=== PATIENT | female | born 1995 | race Two or more races ===

== ENCOUNTER 2025-02-07 12:27 | Inpatient (IN) | payer OTHER ==
[~2025-02-07] VITALS: Ht 157.5 cm; Wt 99.8 kg
[2025-02-07 16:30] VITALS: BP 98/61; O2SAT 97
[2025-02-07] MEDS ORDERED: CIPROFLOXACIN IN 5 % DEXTROSE 400 MG/200 ML PIGGYBAG IV SCH (18:57)
[2025-02-07] MEDS ORDERED: FAMOTIDINE/PF 20 MG/2 ML VIAL IV SCH (18:57)
[2025-02-07] MEDS ORDERED: METRONIDAZOLE/SODIUM CHLORIDE 500 MG/100 ML PIGGYBACK IV SCH (18:58)
[2025-02-07] MEDS ORDERED: 0.9 % SODIUM CHLORIDE 1,000 ML IV SCH (19:00)
[2025-02-07] MEDS ORDERED: ONDANSETRON HCL 2 MG/ML VIAL IV PRN (19:00)
[2025-02-08] MEDS ORDERED: IOVERSOL 320 MG/ML - 50 ML VIAL IV ONE (12:59)
[2025-02-08] MEDS ORDERED: GLUCAGON 1 MG VIAL ONE (12:59)
[2025-02-08] MEDS ORDERED: DICLOFENAC SODIUM 100 MG SUPP.RECT RECTAL ONE (14:15)
[2025-02-08 18:51] VITALS: BP 94/59; O2SAT 98
[2025-02-09 00:59] VITALS: BP 101/55; O2SAT 100
[2025-02-09] MEDS ORDERED: ENOXAPARIN SODIUM 40 MG/0.4 ML SYRINGE SUBCUTANEO SCH (09:00)
[2025-02-09 16:00] VITALS: BP 95/57; O2SAT 99
[2025-02-10 01:16] VITALS: BP 100/55; O2SAT 98
[2025-02-10 08:02] LABS: BASO % 1.2 % (0.1-1.2); EOS # 0.23 (0.04-0.54); EOS % 5.6 % (0.7-7.0); LYMPH # 1.92 (1.18-3.74); LYMPH % 46.7 % (19.3-53.1); MEAN PLATELET VOLUME 11.20 fl (9.4-12.4); MONO # 0.39 (0.24-0.82); MONO % 9.5 % (4.7-12.5); NEUT # 1.51 (1.56-6.13); NEUT % 36.8 % (34.0-71.1); RED CELL DISTRIBUTION WIDTH 12.5 % (11.6-14.4)
[2025-02-10 08:18] LABS: BUN CREA RATIO 6.0 (7.0-25.0); CREATININE SERUM 0.54 mg/dL (0.55-1.02); GFR 135.42; GLUCOSE FASTING 101.0 mg/dL (65-100); OSMOLALITY SERUM 282.0 MOSM/KG (275-295)
== END 2025-02-10 12:59 | disposition home or self-care (01) | DRG 446 ==
LOC: SURG 12:27 → SURH 16:27
PROVIDERS: ADMIT Student in an Organized Health Care Education/Training Program; ATTEND Student in an Organized Health Care Education/Training Program
PROC: 0FC98ZZ Extirpation of Matter from Common Bile Duct, Via Natural or Artificial Opening Endoscopic (ICD-10-PCS; principal; 2025-02-07)
DX: K80.50 Calculus of bile duct without cholangitis or cholecystitis without obstruction (principal); K80.20 Calculus of gallbladder without cholecystitis without obstruction

== ENCOUNTER 2025-03-11 06:16 | Day surgery (SDC) | payer OTHER ==
[~2025-03-11 06:16] MED LIST: CRYSELLE-28 TA1 EACH
[2025-03-11] MEDS ORDERED: CEFAZOLIN SODIUM 1,000 MG VIAL IV ONE (09:30)
[2025-03-11] MEDS ORDERED: SUGAMMADEX SODIUM 200 MG/2 ML VIAL IV ONE (10:15)
[2025-03-11] MEDS ORDERED: BUPIVACAINE HCL 30 ML VIAL IJ ONE (10:15)
[2025-03-11] MEDS ORDERED: MORPHINE SULFATE 4 MG/ML VIAL IV ONE (10:55)
== END 2025-03-11 12:20 | disposition home or self-care (01) ==
LOC: CIR.AMB 06:16
PROVIDERS: ATTEND Student in an Organized Health Care Education/Training Program
DX: K80.10 Calculus of gallbladder with chronic cholecystitis without obstruction (principal)